=== PATIENT | male | born 1990 | race Two or more races ===

== ENCOUNTER 2017-01-30 23:26 | Emergency (ER) | payer OTHER, SELFPAY ==
[~2017-01-30] VITALS: Ht 167.6 cm; Wt 86.7 kg
[2017-01-31] MEDS ORDERED: HYDROcodone/APAP 5/325 TABLET ONE (00:18)
[2017-01-31] MEDS ORDERED: HYDROcodone/APAP 5/325 TABLET PO ONE (00:30)
[2017-01-31 00:32] VITALS: BP 141/94
== END 2017-01-31 01:02 | disposition home or self-care (01) ==
LOC: ED 23:59
DX: S09.90XA Unspecified injury of head, initial encounter (principal); Y04.8XXA Assault by other bodily force, initial encounter; Y99.8 Other external cause status; Y93.89 Activity, other specified; Y92.410 Unspecified street and highway as the place of occurrence of the external cause
CPT/HCPCS: 70450; 99284